=== PATIENT | female | born 1965 | race Caucasian/White ===

== ENCOUNTER 2017-12-30 18:14 | Emergency (ER) | payer OTHER ==
[~2017-12-30] VITALS: Ht 162.6 cm; Wt 84.0 kg
[~2017-12-30 18:14] MED LIST: CICLOPIROX45 GM TP; CYTOMEL5 MCG PO; DOCUSATE SODIU100 MG PO; ENDOCET 5-3251 EACH PO; ESTRACE42.5 GM VG; KEFLEX500 MG PO; POLYETHYLENE GL17 GM PO; SYNTHROID137 MCG PO; TRAMADOL HCL50 MG PO; VITAMIN C1000 M1 PO; VITAMIN D10000 UNIT PO
[2017-12-30 20:20] VITALS: BP 122/60
== END 2017-12-30 20:21 | disposition home or self-care (01) ==
LOC: EME 18:14
DX: M79.661 Pain in right lower leg (principal); Z98.890 Other specified postprocedural states; E05.90 Thyrotoxicosis, unspecified without thyrotoxic crisis or storm; Z87.891 Personal history of nicotine dependence
CPT/HCPCS: 93971; 99281; 99284